=== PATIENT | male | born 2005 | race Two or more races ===

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

== ENCOUNTER 2024-04-03 19:21 | Emergency (ER) | payer MEDICAID ==
[~2024-04-03] VITALS: Ht 172.7 cm; Wt 66.1 kg
[2024-04-03 19:21] VITALS: BP 113/65; PULSE 53; RESP 16; O2SAT 99
== END 2024-04-03 22:39 | disposition left against medical advice (07) ==
LOC: ER 19:21
DX: H57.12 Ocular pain, left eye (principal); Z53.21 Procedure and treatment not carried out due to patient leaving prior to being seen by health care provider